=== PATIENT | female | born 1960 | race Two or more races ===

== ENCOUNTER → 2020-05-29 | Outpatient (CLI) | payer OTHER | END | disposition home or self-care (01) | LOC: MRI 08:15 | PROVIDERS: ATTEND Specialist | DX: K80.80 Other cholelithiasis without obstruction (principal); K80.20 Calculus of gallbladder without cholecystitis without obstruction; Q61.01 Congenital single renal cyst; K80.10 Calculus of gallbladder with chronic cholecystitis without obstruction | CPT/HCPCS: 74181 ==

== ENCOUNTER 2020-07-03 07:18 | Outpatient (CLI) | payer OTHER | END 2020-07-03 07:21 | disposition home or self-care (01) | LOC: NUCLEAR 07:18 | PROVIDERS: ATTEND Specialist | DX: K81.1 Chronic cholecystitis (principal) | CPT/HCPCS: 78227; A9537; J2805 ==

== ENCOUNTER 2021-01-08 10:08 | Outpatient (CLI) | payer OTHER ==
[2021-01-21] MEDS ORDERED: XANAX1 MG PO (12:43)
[2021-01-21] MEDS ORDERED: CYMBALTA20 MG PO (12:43)
[2021-01-21] MEDS ORDERED: WELLBUTRIN SR100 MG PO (12:43)
[2021-01-21] MEDS ORDERED: RISEDRONATE SOD35 M1 PO (12:44)
[2021-01-21] MEDS ORDERED: RASUVO 7.57.5 MG/0.1 SUBCUTANEO (12:44)
== END 2021-01-08 10:19 | disposition home or self-care (01) ==
LOC: RAD 10:08
PROVIDERS: ATTEND Internal Medicine Pulmonary Disease
DX: G47.33 Obstructive sleep apnea (adult) (pediatric) (principal); E66.01 Morbid (severe) obesity due to excess calories; R06.02 Shortness of breath

== ENCOUNTER 2021-01-30 05:04 | Day surgery (SDC) | payer OTHER ==
[~2021-01-30 05:04] MED LIST: CYMBALTA20 MG PO; RASUVO 7.57.5 MG/0.1 SUBCUTANEO; RISEDRONATE SOD35 M1 PO; WELLBUTRIN SR100 MG PO; XANAX1 MG PO
== END 2021-01-30 11:40 | disposition home or self-care (01) ==
LOC: CIR.AMB 05:04
PROVIDERS: ATTEND Specialist
DX: K80.10 Calculus of gallbladder with chronic cholecystitis without obstruction (principal); Z20.822 Contact with and (suspected) exposure to COVID-19

== ENCOUNTER 2021-09-12 11:13 | Outpatient (CLI) | payer OTHER | END 2021-09-12 11:21 | disposition home or self-care (01) | LOC: TOM 11:13 | PROVIDERS: ATTEND General Practice | DX: J45.998 Other asthma (principal); R59.1 Generalized enlarged lymph nodes; Z85.9 Personal history of malignant neoplasm, unspecified ==

== ENCOUNTER 2022-11-22 21:28 | Emergency (ER) | payer OTHER ==
[~2022-11-22] VITALS: Ht 157.5 cm; Wt 78.0 kg
[2022-11-23] MEDS ORDERED: DOLOGESIC-DF 51 EACH PO (02:01)
== END 2022-11-23 02:19 ==
LOC: ER 21:28
DX: S29.8XXA Other specified injuries of thorax, initial encounter (principal); W08.XXXA Fall from other furniture, initial encounter; Y93.89 Activity, other specified; Y92.018 Other place in single-family (private) house as the place of occurrence of the external cause; Y99.9 Unspecified external cause status; Z88.6 Allergy status to analgesic agent; Z91.013 Allergy to seafood

== ENCOUNTER 2022-11-30 11:24 | Outpatient (CLI) | payer OTHER ==
[~2022-11-30 11:24] MED LIST changes: +DOLOGESIC-DF 51 EACH PO
== END 2022-11-30 11:40 | disposition home or self-care (01) ==
LOC: RAD 11:24
PROVIDERS: ATTEND Specialist
DX: S29.9XXA Unspecified injury of thorax, initial encounter (principal)

== ENCOUNTER 2024-09-20 19:18 | Emergency (ER) | payer OTHER ==
[~2024-09-20] VITALS: Ht 157.5 cm; Wt 79.4 kg
[2024-09-20] MEDS ORDERED: LIPITOR20 MG PO (19:53)
[2024-09-20 20:45] LABS: HEMOGLOBIN 13.3 g/dL (12.0-15.00); MEAN CELL VOLUME 94.1 fL (80.00-100.00); MEAN CORPUSCULAR HEMOGLOBIN 31.4 pg (27.00-32.0); MEAN CORPUSCULAR HGB CONC 33.4 g/dl (32.0-36.0); PLATELET COUNT 289 K/uL (150-450); RED BLOOD COUNT 4.25 M/uL (4.00-6.00)
== END 2024-09-20 21:30 | disposition home or self-care (01) ==
LOC: ER 19:20
PROVIDERS: General Practice
DX: J02.9 Acute pharyngitis, unspecified (principal); Z88.6 Allergy status to analgesic agent; Z91.013 Allergy to seafood

== ENCOUNTER 2025-05-14 08:00 | Day surgery (SDC) | payer OTHER ==
[~2025-05-14 08:00] MED LIST changes: +LIPITOR20 MG PO
[2025-05-14] MEDS ORDERED: MIDAZOLAM HCL 2 MG/2 ML VIAL IV ONE (14:00)
[2025-05-14] MEDS ORDERED: DIPHENHYDRAMINE HCL 50 MG/ML VIAL 1ML IV ONE (14:00)
[2025-05-14] MEDS ORDERED: fentaNYL CITRATE 50 MCG/ML AMPUL IV PUSH ONE (14:00)
== END 2025-05-14 15:30 | disposition home or self-care (01) ==
LOC: AMB-ENDOS 08:00
PROVIDERS: ATTEND Internal Medicine
DX: K22.2 Esophageal obstruction (principal); R13.19 Other dysphagia; K44.9 Diaphragmatic hernia without obstruction or gangrene; Z91.013 Allergy to seafood; Z88.6 Allergy status to analgesic agent